=== PATIENT | female | born 1960 | race Caucasian/White ===

== ENCOUNTER 2017-11-24 14:55 | Emergency (ER) | payer OTHER, MEDICARE ==
[~2017-11-24] VITALS: Ht 157.5 cm; Wt 68.3 kg
[~2017-11-24 14:55] MED LIST: AMOX1TAB61 PO; CELE50CA PO; CIPR500T87 PO; CYCL-259 PO; DIVA250T4; ESZO3TAB28; GABA600T14 PO; HYDR-3307 PO; MECL12.52 PO; METH500T97 PO; METR500T PO; MILN50TA; ONDA4TAB10 PO; OXYC-307 PO; PROM25SU34 PR
[2017-11-24] MEDS ORDERED: DIHYDROERGOTAMINE 1 MG/ML, 1ML IM ONE (15:30)
[2017-11-24] MEDS ORDERED: ACETAMINOPHEN 500 MG TABLET PO ONE (15:30)
[2017-11-24] MEDS ORDERED: SODIUM CHLORIDE 0.9% 1,000ML IVBOLUS ONE (15:30)
[2017-11-24] MEDS ORDERED: DIPHENHYDRAMINE 50 MG/ML, 1ML IVPush ONE (15:30)
[2017-11-24] MEDS ORDERED: DEXAMETHASONE 4 MG/ML, 1ML IVPush ONE (15:30)
[2017-11-24] MEDS ORDERED: SODIUM CHLORIDE FLUSH 10ML SYR IVF ONE (15:30)
[2017-11-24] MEDS ORDERED: METOCLOPRAMIDE 5 MG/ML, 2ML IVPush ONE (15:30)
[2017-11-24] MEDS ORDERED: KETOROLAC 30 MG/1 ML IVPush ONE (15:30)
[2017-11-24] MEDS ORDERED: DEXAMETHASONE 4 MG/ML, 1ML ONE (15:42)
[2017-11-24] MEDS ORDERED: DIPHENHYDRAMINE 50 MG/ML, 1ML ONE (15:43)
[2017-11-24] MEDS ORDERED: KETOROLAC 30 MG/1 ML ONE (15:43)
[2017-11-24] MEDS ORDERED: ACETAMINOPHEN 500 MG TABLET ONE (15:43)
[2017-11-24] MEDS ORDERED: METOCLOPRAMIDE 5 MG/ML, 2ML ONE (15:43)
[2017-11-24] MEDS ORDERED: DEXAMETHASONE 12 MG in SODIUM CHLORIDE 0.9% 50 ML IV ONE (16:00)
[2017-11-24 16:47] VITALS: BP 112/77
== END 2017-11-24 16:50 | disposition home or self-care (01) ==
LOC: ED 16:20
DX: G43.011 Migraine without aura, intractable, with status migrainosus (principal); G89.29 Other chronic pain; M79.7 Fibromyalgia; Z90.89 Acquired absence of other organs; Z90.49 Acquired absence of other specified parts of digestive tract; Z90.710 Acquired absence of both cervix and uterus
CPT/HCPCS: 96365; 96372; 96375; 99284; J1100; J1110; J1200; J1885; J2765; J7030